=== PATIENT | male | born 1955 | race Caucasian/White ===

== ENCOUNTER 2022-04-22 11:24 | Emergency (ER) | payer MEDICARE, OTHER, SELFPAY ==
[2022-04-22 11:26] VITALS: BP 159/87; PULSE 62; RESP 16; TEMP 36.6; O2SAT 96; BMI 26.3
[2022-04-22 12:02] VITALS: BP 159/87; PULSE 62; RESP 16; TEMP 36.6; O2SAT 96; BMI 26.3
--- NOTE | 2022-04-22 12:16 | EXP.UTC ---
Discharge Plan Disposition Patient Disposition: Home, Self-Care Condition: Good Prescriptions Prescriptions: New doxycycline monohydrate 100 mg tablet 100 mg PO BID 5 Days Qty: 10 0RF No Action allopurinol 100 mg tablet 100 mg PO DAILY fluticasone propionate 50 mcg/actuation spray,suspension 50 mcg NS NEEDED PRN (Reason: Allergy Symptoms) methylprednisolone 4 mg tablets,dose pack See Rx Instructions PO PER PKG DIR Qty: 21 0RF Rx Instructions: PO PER PKG DIR cyclobenzaprine 10 mg tablet 10 mg PO TID PRN (Reason: muscle spasm) Qty: 30 1RF Referrals Follow up/Referrals: Dayanara Calabrese MD [Primary Care Provider] - See instructions Activity Restrictions/Add. Instructions Additional Instructions/Restrictions: Suture instructions: ?You have required stitches today. Please read the following instructions so you know how to care for them: ?1. Keep wound area dry for the first 24 hours. 2?? May clean gently with mild soap and water, after 48 hours to prevent crusting over suture knots. 3. You may shower if your provider gives permission but do not take a bath until the skin is healed.. 4. Never leave a wet dressing or Band-Aid on your stitches as this allows bacteria to reach the area and may cause infection. Band-aids can cause the wound to sweat and not recommended to wear for long periods of time Watch for signs of infection: ? Increasing redness, tenderness or warmth around the suture site ? Unusual swelling around the site ? Appearance of pus around each suture or any red streaks ? Fever If you develop any of the above signs or symptoms of infection, Follow up with Family Physician immediately 5. Suture removal in _12-14___days 6. Return to [facility] [[email or web address]] or follow up with family doctor for removal. This can be done by any medical provider dur?ing regular hours on Friday through Friday, by appointment. Clinical Impressions Clinical Impression: Laceration Instructions Patient Instructions: DI for Laceration Repair, DI for Laceration Repair -- Simple Discharge ED Provider: Katrin Escamilla [facility] [place] General Stated complaint: Cut LT leg w/chainsaw @home 04/22 10:00am Mode of Arrival: Ambulatory Source of Information: Patient Limitations: No Limitations Time Seen by Provider: 04/22/22 12:16 Description of Symptoms (Recalled from Triage Doc. by RN): pt comes in with c/o left knee laceration. pt cut knee with chainsaw earlier this am. HEENT Symptoms (Recalled from RN notes): No Resp Symptoms (Recalled from RN notes): No Skin Symptoms (Recalled from RN notes): Yes MS Symptoms (Recalled from RN notes): No Functional Status (Recalled from RN notes): n/a History of Present Illness Provider Complaint: Patient states that he was using a chainsaw to cut some wood when it kicked back and struck him in the left knee causing laceration to his left knee States that he applied pressure and looked at it States that it didnt look that deep but knew it needed stitches so he came in States that last tetanus was earlier this year Related Data Home Medications Medication Instructions Recorded Confirmed allopurinol 100 mg tablet 100 mg PO DAILY gout 01/21/22 04/22/22 fluticasone propionate 50 50 mcg intranasal NEEDED PRN 01/21/22 04/22/22 mcg/actuation nasal Allergy Symptoms spray,suspension Previous Rx's Medication Instructions Recorded methylprednisolone 4 mg tablets in See Rx Instructions PO PER PKG DIR 01/21/22 a dose pack #21 tabs cyclobenzaprine 10 mg tablet 10 mg PO TID PRN muscle spasm #30 04/15/22 tabs doxycycline monohydrate 100 mg 100 mg PO BID 5 days #10 tabs 04/22/22 tablet Allergies Allergy/AdvReac Type Severity Reaction Status Date / Time cefdinir Allergy Unknown Verified 04/22/22 12:06 Worker's Comp Is this a Worker's Comp case?: No PFSH PFSH Medical History (Updated 04/22/22 @ 12:21 by Katrin Escamilla APRN) Allergic rhinitis Degeneration of intervertebra
[2022-04-22 12:59] VITALS: BP 159/87; PULSE 62; RESP 16; TEMP 36.6
== END 2022-04-22 13:06 | disposition home or self-care (01) ==
PROVIDERS: Emergency Provider Nurse Practitioner; PCP Family Medicine
DX: S81.012A Laceration without foreign body, left knee, initial encounter (principal); M62.838 Other muscle spasm; M51.36 Other intervertebral disc degeneration, lumbar region; M19.90 Unspecified osteoarthritis, unspecified site; J30.9 Allergic rhinitis, unspecified; Z79.51 Long term (current) use of inhaled steroids; Z79.52 Long term (current) use of systemic steroids; Z79.899 Other long term (current) drug therapy; Z88.8 Allergy status to other drugs, medicaments and biological substances; W29.3XXA Contact with powered garden and outdoor hand tools and machinery, initial encounter
CPT/HCPCS: 12001; 99213; G0463

== ENCOUNTER → 2022-04-29 08:50 | Outpatient (CLI) | payer MEDICARE, SELFPAY ==
[2022-04-29 18:37] LABS: Alanine Aminotransferase 14 U/L (12-78); Albumin Level 3.7 g/dl (3.5-5.0); Albumin/Globulin Ratio 1.4 (1.1-1.8); Alkaline Phosphatase 118 U/L (38-126); Anion Gap 11.4 mEq/L (5-15); Aspartate Amino Transferase 27 U/L (17-59); Basophils # 0.1 K/mm3 (0-0.2); Basophils % 1.9 % (0.1-2.0); Bilirubin,Total 0.5 mg/dl (0.2-1.3); Blood Urea Nitrogen 15 mg/dl (9-20); Calcium 8.9 mg/dl (8.4-10.2); Carbon Dioxide 29 mmol/L (22.0-30.0); Chloride 103 mmol/L (98-107); Chol/HDL Ratio 3.1 (1-3.5); Cholesterol 147 mg/dl (140-200); Eosinophils # 0.2 K/mm3 (0.0-0.4); Eosinophils % 4.8 % (0.1-12.0); Estimated Glomerular Filt Rate 84 ml/min (>60); GFR (African American) 101 ML/MIN (>60); Globulin 2.7 g/dL (1.3-3.2); Glucose 88 mg/dl (74-100); HDL Cholesterol 48 mg/dl (40-60); Hematocrit 47.6 % (42.0-52.0); Hemoglobin 15.1 g/dL (14.1-18.0); Lymphocytes # 1.6 K/mm3 (0.7-4.5); Lymphocytes % 35.9 % (10-50); Mean Corpuscular HGB Conc 31.8 g/dL (31.8-35.4); Mean Corpuscular Hemoglobin 29.7 pg (27.0-31.2); Mean Corpuscular Volume 93.6 fl (80-94); Mean Platelet Volume 8.4 fl (7.4-10.4); Monocytes # 0.5 K/mm3 (0.1-1.0); Monocytes % 10.5 % (1.7-9.3); Neutrophils # 2.1 K/mm3 (1.8-7.8); Neutrophils % 46.9 % (37.0-80.0); Platelet Count 343 K/mm3 (142-424); Potassium 4.4 mmoL/L (3.5-5.1); Red Blood Count 5.08 M/mm3 (4.60-6.20); Red Cell Distribution Width 13.6 % (11.5-17.5); Sodium 139 mmol/L (136-145); Total Protein,Serum 6.4 g/dl (6.3-8.2); Triglycerides 57 mg/dl (30-150); Uric Acid 6.1 mg/dl (3.5-8.5); VLDL Cholesterol 11 mg/dL (0-40); White Blood Count 4.4 K/mm3 (4.8-10.8)
[2022-04-29 18:48] LABS: Direct LDL Cholesterol 78.68 mg/dL (100-129)
[2022-04-29 19:08] LABS: Thyroid Stimulating Hormone 3.18 uIU/mL (0.465-4.68)
== END ==
PROVIDERS: PCP Nurse Practitioner; Visit Provider Nurse Practitioner
DX: E79.0 Hyperuricemia without signs of inflammatory arthritis and tophaceous disease (principal); I10 Essential (primary) hypertension
CPT/HCPCS: 80053; 80061; 84443; 84550; 85025

== ENCOUNTER → 2022-06-12 14:02 | Outpatient (CLI) | payer MEDICARE, OTHER, SELFPAY ==
[2022-06-12 18:31] LABS: Adenovirus,PCR Not Detected (NotDetected); Bordetella Pertussis Not Detected (NotDetected); Chlamydophila Pneumoniae, PCR Not Detected (NotDetected); Coronavirus 19, PCR Not Detected (NotDetected); Coronavirus 229E Not Detected (NotDetected); Coronavirus NL63 Not Detected (NotDetected); Coronavirus OC43 Not Detected (NotDetected); Coronovirus HKU1,PCR Not Detected (NotDetected); Human Metapneumovirus Not Detected (NotDetected); Influenza A, PCR Not Detected (NotDetected); Influenza AH1, 2009 Not Detected (NotDetected); Influenza AH1, PCR Not Detected (NotDetected); Influenza AH3,PCR Not Detected (NotDetected); Influenza B, PCR Not Detected (NotDetected); Mycoplasma Pneumoniae, PCR Not Detected (NotDetected); Parainfluenza 1, PCR Not Detected (NotDetected); Parainfluenza 2, PCR Not Detected (NotDetected); Parainfluenza 3, PCR Not Detected (NotDetected); Parainfluenza 4, PCR Not Detected (NotDetected); Respiratory Syncytial Virus Not Detected (NotDetected)
[2022-06-14 08:48] LABS: Rhinovirus/Enterovirus Detected (NotDetected)
== END ==
PROVIDERS: PCP Nurse Practitioner; Visit Provider Nurse Practitioner
DX: J06.9 Acute upper respiratory infection, unspecified (principal); B34.1 Enterovirus infection, unspecified
CPT/HCPCS: 87581; 87632; 87798; C9803; U0003; U0005

== ENCOUNTER 2023-10-14 20:15 | Outpatient (CLI) | payer MEDICARE, OTHER, SELFPAY ==
[2023-10-14 18:18] LABS: Basophils # 0.1 K/mm3 (0-0.2); Basophils % 2.1 % (0.1-2.0); Eosinophils # 0.4 K/mm3 (0.0-0.4); Eosinophils % 5.7 % (0.1-12.0); Hematocrit 45.1 % (42.0-52.0); Hemoglobin 14.4 g/dL (14.1-18.0); Lymphocytes # 2.2 K/mm3 (0.7-4.5); Lymphocytes % 35.4 % (10-50); Mean Corpuscular Volume 96.9 fl (80-94); Mean Platelet Volume 7.8 fl (7.4-10.4); Monocytes # 0.6 K/mm3 (0.1-1.0); Monocytes % 9.6 % (1.7-9.3); Neutrophils # 2.9 K/mm3 (1.8-7.8); Neutrophils % 47.2 % (37.0-80.0); Platelet Count 273 K/mm3 (142-424); Red Blood Count 4.65 M/mm3 (4.60-6.20); Red Cell Distribution Width 13.9 % (11.5-17.5); White Blood Count 6.1 K/mm3 (4.8-10.8)
[2023-10-14 18:50] LABS: Creatinine,Urine Random 62 mg/dL (Not Estab.)
[2023-10-14 18:52] LABS: Microalbumin < 6.000 mg/L (0-16.7)
[2023-10-14 18:58] LABS: Alanine Aminotransferase 17 U/L (12-78); Albumin Level 3.7 g/dl (3.5-5.0); Albumin/Globulin Ratio 1.5 (1.1-1.8); Alkaline Phosphatase 82 U/L (38-126); Anion Gap 8.4 mEq/L (5-15); Aspartate Amino Transferase 26 U/L (17-59); Bilirubin,Total 0.3 mg/dl (0.2-1.3); Blood Urea Nitrogen 15 mg/dl (9-20); Calcium 9.4 mg/dl (8.4-10.2); Carbon Dioxide 30 mmol/L (22.0-30.0); Chloride 110 mmol/L (98-107); Chol/HDL Ratio 3.6 (1-3.5); Cholesterol 162 mg/dl (140-200); Estimated Glomerular Filt Rate 83 ml/min (>60); GFR (African American) 101 ML/MIN (>60); Globulin 2.5 g/dL (1.3-3.2); Glucose 96 mg/dl (74-100); HDL Cholesterol 45 mg/dl (40-60); Potassium 4.4 mmoL/L (3.5-5.1); Sodium 144 mmol/L (136-145); Total Protein,Serum 6.2 g/dl (6.3-8.2); Triglycerides 52 mg/dl (30-150); Uric Acid 5.3 mg/dl (3.5-8.5); VLDL Cholesterol 10 mg/dL (0-40)
[2023-10-14 19:14] LABS: Direct LDL Cholesterol 81.48 mg/dL (100-129)
[2023-10-14 19:32] LABS: Thyroid Stimulating Hormone 3.26 uIU/mL (0.465-4.68)
[2023-10-14 19:37] LABS: Hemoglobin A1C 5.7 % (4.0-6.0)
== END 2023-10-14 23:59 ==
LOC: LAB.DROPOF 20:15
PROVIDERS: PCP Nurse Practitioner; Visit Provider Nurse Practitioner
DX: I10 Essential (primary) hypertension (principal); Z82.49 Family history of ischemic heart disease and other diseases of the circulatory system; Z83.3 Family history of diabetes mellitus; E79.0 Hyperuricemia without signs of inflammatory arthritis and tophaceous disease; J01.00 Acute maxillary sinusitis, unspecified
CPT/HCPCS: 80053; 80061; 82043; 82570; 83036; 84443; 84550; 85025

== ENCOUNTER 2023-10-15 18:29 | Outpatient (CLI) | payer MEDICARE, OTHER, SELFPAY ==
[2023-10-15 18:16] LABS: Chol/HDL Ratio 2.6 (1-3.5); Cholesterol 164 mg/dl (140-200); HDL Cholesterol 64 mg/dl (40-60); Triglycerides 60 mg/dl (30-150); VLDL Cholesterol 12 mg/dL (0-40)
== END 2023-10-15 23:59 ==
PROVIDERS: PCP Nurse Practitioner; Visit Provider Nurse Practitioner
DX: E78.5 Hyperlipidemia, unspecified (principal)
CPT/HCPCS: 80061

== ENCOUNTER 2023-12-15 09:14 | Outpatient (CLI) | payer MEDICARE, OTHER, SELFPAY ==
[2023-12-15 18:08] LABS: Basophils % 0.6 % (0.1-2.0); Eosinophils # 0.1 K/mm3 (0.0-0.4); Eosinophils % 0.9 % (0.1-12.0); Hematocrit 45.7 % (42.0-52.0); Hemoglobin 14.7 g/dL (14.1-18.0); Lymphocytes # 0.8 K/mm3 (0.7-4.5); Lymphocytes % 12.5 % (10-50); Mean Corpuscular HGB Conc 32.1 g/dL (31.8-35.4); Mean Corpuscular Hemoglobin 30.3 pg (27.0-31.2); Mean Corpuscular Volume 94.4 fl (80-94); Mean Platelet Volume 8.6 fl (7.4-10.4); Monocytes # 0.3 K/mm3 (0.1-1.0); Monocytes % 4.6 % (1.7-9.3); Neutrophils # 5.3 K/mm3 (1.8-7.8); Neutrophils % 81.4 % (37.0-80.0); Platelet Count 279 K/mm3 (142-424); Red Blood Count 4.85 M/mm3 (4.60-6.20); White Blood Count 6.5 K/mm3 (4.8-10.8)
[2023-12-15 18:50] LABS: Alanine Aminotransferase 18 U/L (12-78); Albumin Level 3.9 g/dl (3.5-5.0); Albumin/Globulin Ratio 1.5 (1.1-1.8); Alkaline Phosphatase 87 U/L (38-126); Anion Gap 14.1 mEq/L (5-15); Aspartate Amino Transferase 29 U/L (17-59); Bilirubin,Total 0.6 mg/dl (0.2-1.3); Blood Urea Nitrogen 21 mg/dl (9-20); Calcium 9.8 mg/dl (8.4-10.2); Carbon Dioxide 26 mmol/L (22.0-30.0); Chloride 105 mmol/L (98-107); Estimated Glomerular Filt Rate 111 ml/min (>60); GFR (African American) 135 ML/MIN (>60); Globulin 2.6 g/dL (1.3-3.2); Glucose 151 mg/dl (74-100); Potassium 5.1 mmoL/L (3.5-5.1); Sodium 140 mmol/L (136-145); Total Protein,Serum 6.5 g/dl (6.3-8.2)
== END 2023-12-15 23:59 | disposition home or self-care (01) ==
LOC: LAB.DROPOF 12-17 09:37
PROVIDERS: PCP Nurse Practitioner; Visit Provider Nurse Practitioner
DX: R11.2 Nausea with vomiting, unspecified (principal); R42 Dizziness and giddiness
CPT/HCPCS: 80053; 85025

== ENCOUNTER 2024-02-12 18:35 | Outpatient (CLI) | payer MEDICARE, OTHER, SELFPAY ==
[2024-02-12 19:35] LABS: Alanine Aminotransferase 93 U/L (12-78); Albumin Level 3.8 g/dl (3.5-5.0); Albumin/Globulin Ratio 1.4 (1.1-1.8); Alkaline Phosphatase 98 U/L (38-126); Anion Gap 8.6 mEq/L (5-15); Aspartate Amino Transferase 68 U/L (17-59); Bilirubin,Total 0.8 mg/dl (0.2-1.3); Blood Urea Nitrogen 19 mg/dl (9-20); Calcium 9.4 mg/dl (8.4-10.2); Carbon Dioxide 27 mmol/L (22.0-30.0); Chloride 108 mmol/L (98-107); Chol/HDL Ratio 2.3 (1-3.5); Cholesterol 112 mg/dl (140-200); Estimated Glomerular Filt Rate 83 ml/min (>60); GFR (African American) 101 ML/MIN (>60); Globulin 2.7 g/dL (1.3-3.2); Glucose 104 mg/dl (74-100); HDL Cholesterol 49 mg/dl (40-60); Potassium 4.6 mmoL/L (3.5-5.1); Sodium 139 mmol/L (136-145); Total Protein,Serum 6.5 g/dl (6.3-8.2); Triglycerides 49 mg/dl (30-150); Uric Acid 6.6 mg/dl (3.5-8.5); VLDL Cholesterol 10 mg/dL (0-40)
[2024-02-12 19:46] LABS: Direct LDL Cholesterol 46.14 mg/dL (100-129)
[2024-02-12 20:02] LABS: Prostate Specific Ag Screen 1.5 ng/ml (0.0-4.0); Thyroid Stimulating Hormone 3.16 uIU/mL (0.465-4.68)
[2024-02-12 20:21] LABS: Vitamin B12 430 pg/mL (239-931)
[2024-02-12 21:25] LABS: Creatinine,Urine Random 66 mg/dL (Not Estab.); Microalbumin < 6.000 mg/L (0-16.7)
== END 2024-02-12 23:59 | disposition home or self-care (01) ==
PROVIDERS: PCP Nurse Practitioner; Visit Provider Nurse Practitioner
DX: I10 Essential (primary) hypertension (principal); E79.0 Hyperuricemia without signs of inflammatory arthritis and tophaceous disease; I25.10 Atherosclerotic heart disease of native coronary artery without angina pectoris; E78.5 Hyperlipidemia, unspecified; R00.1 Bradycardia, unspecified; Z12.5 Encounter for screening for malignant neoplasm of prostate
CPT/HCPCS: 80053; 80061; 82043; 82570; 82607; 84443; 84550; G0103

== ENCOUNTER 2024-04-01 09:34 | Outpatient (CLI) | payer MEDICARE, OTHER, SELFPAY ==
[2024-04-02 10:06] LABS: Alanine Aminotransferase 20 U/L (12-78); Albumin Level 3.7 g/dl (3.5-5.0); Albumin/Globulin Ratio 1.4 (1.1-1.8); Alkaline Phosphatase 124 U/L (38-126); Aspartate Amino Transferase 36 U/L (17-59); Bilirubin,Total 0.9 mg/dl (0.2-1.3); Blood Urea Nitrogen 15 mg/dl (9-20); Calcium 9.4 mg/dl (8.4-10.2); Carbon Dioxide 27 mmol/L (22.0-30.0); Chloride 106 mmol/L (98-107); Estimated Glomerular Filt Rate 83 ml/min (>60); GFR (African American) 101 ML/MIN (>60); Globulin 2.6 g/dL (1.3-3.2); Glucose 102 mg/dl (74-100); Sodium 137 mmol/L (136-145); Total Protein,Serum 6.3 g/dl (6.3-8.2)
[2024-04-02 10:52] LABS: Anion Gap 8.4 mEq/L (5-15); Potassium 4.4 mmoL/L (3.5-5.1)
== END 2024-04-01 23:59 | disposition home or self-care (01) ==
LOC: LAB.DROPOF 04-02 09:35
PROVIDERS: PCP Nurse Practitioner; Visit Provider Nurse Practitioner
DX: E78.5 Hyperlipidemia, unspecified (principal); R74.8 Abnormal levels of other serum enzymes
CPT/HCPCS: 80053

== ENCOUNTER 2025-04-25 11:11 | Outpatient (CLI) | payer MEDICARE, OTHER, SELFPAY ==
--- OUTSIDE RECORDS SUMMARY | 2025-03-07 06:33 | XMS_ITS | Encounter Summary ---
Author Organization [facility] Address [address], [address] [place] [address] Care Team Providers Care Electromedical Equipment Technician Name Role Phone Unavailable Primary Care Provider Unavailabl e Encounter Details Date Type Department Care Team ([facility] st Contact Info) Description 03/07/2025 6:33 AM EDT - 03/07/2025 6:39 AM EDT Emergency [facility] [id number] [address] David Hill MD [address] [place] [address] Discharge Disposition: Voided Visit Social History Tobacco Use Types Packs/Day Years Used Date Smoking Tobacco: Never Smokeless Tobacco: Never Alcohol Use Standard Drinks/Week Comments Not Currently 0 (1 standard drink = 0.6 oz pur e alcohol) Sex and Gender Information Value Date Recorded Sex Assigned at Not on file Legal Sex Male 2:38 PM EST Gender Identity Not on file Sexual Orientation Not on file documented as of this encounter Medications at Time of Discharge metoprolol succinate (TOPROL XL) 25 MG extended release tablet Take 0.5 tablets by mouth daily lisinopril (PRINIVIL;ZESTRIL) 10 MG tablet Take 1 tablet by mouth daily diclofenac (VOLTAREN) 75 MG EC tablet 04/13/2024 cetirizine (ZYRTEC) 10 MG tablet Take 1 tablet by mouth daily allopurinol (ZYLOPRIM) 100 MG tablet TAKE 1 TABLET BY MOUTH EVERY DAY FOR GOUT amLODIPine (NORVASC) 5 MG tablet Take 1 tablet by mouth daily isosorbide mononitrate (IMDUR) 30 MG extended release tablet Take 1 tablet by mouth every morning aspirin 81 MG chewable tablet Take 1 tablet by mouth daily 11/14/2023 atorvastatin (LIPITOR) 40 MG tablet Take 1 tablet by mouth nightly 01/19/2024 colchicine (COLCRYS) 0.6 MG tablet Take 0.6 mg by mouth daily documented as of this encounter Plan of Treatment Not on file documented as of this encounter Visit Diagnoses Not on filedocumented in this encounter Additional Health Concerns Assessment Noted Time A Body Mass Index follow-up plan has been documented for the patient 01/14/2020 4:12 PM EDT documented as of this encounter
--- OUTSIDE RECORDS SUMMARY | 2025-04-20 10:30 | XMS_ITS | Encounter Summary ---
Author Organization [facility] Address [address] [place] [address] Care Team Providers Care Fire Watchman Name Role Phone Ronda Mendez APRN Primary Care Provider [phone] Reason for Visit * Reason Comments Pain Encounter Details Date Type Department Care Team (Late st Contact Info) Description 04/20/2025 10:30 AM EDT Office Visit [facility] [address] [place] [id number] Mariia Gaitan PA-C [address] [place] [address] Osteoarthritis of left knee, unspecified osteoarthritis type (Primary Dx); Left knee pain, unspecified chronicity Social History Tobacco Use Types Packs/Day Years Used Date Smoking Tobacco: Never Passive Smoke Exposure: Past Smokeless Tobacco: Never Alcohol Use Standard Drinks/Week Comments Never 0 (1 standard drink = 0.6 oz pur e alcohol) AUDIT-C Answer Date Recorded Frequency of Alcohol Consumption Never 07/30/2019 Average Number of Drinks Not on file 020 Frequency of Binge Drinking Not on file 07/14 Sex and Gender Information Value Date Recorded Sex Assigned at Not on file Legal Sex Male 2:42 AM EDT Gender Identity Not on file Sexual Orientation Not on file documented as of this encounter Last Filed Vital Signs Vital Sign Reading Time Taken Comments Blood Pressure - - Pulse - - Temperature - - Respiratory Rate - - Oxygen Saturation - - Inhaled Oxygen Concentration - - Weight 97.8 kg (215 lb 9.6 oz) 04/20/2025 11:14 AM EDT Height - - Body Mass Index 27.68 01/18/2025 7:25 AM EDT documented in this encounter Progress Notes * Mariia Gaitan PA-C - 04/20/2025 10:30 AM EDT Images from the original note were not included. DATE OF VISIT: 04/20/2025 PATIENT NAME: Phani Harris AGE: 70 y.o. SEX: male CHIEF COMPLAINT Chief Complaint Patient presents with ??? Left Knee - Pain HPI Phani Harris is a 70 y.o. male who presents to orthopedic urgent care for evaluation of left knee pain. Patient states that his left knee has been stiff/sore intermittently for the past 10 years. His knee has started to bother him a little bit more over the past 1 year. Reports occasional catching in the knee. Denies locking, popping, or feeling of instability. He is able to ambulate. Has had no new or previous injury to the knee. He is a maldonado and is very active. States that he did get a cortisone injection a couple of years ago, which was helpful. He takes Aleve twice daily for his knee and shoulder, which helps somewhat. SOCIAL HISTORY Social History Occupational History ??? Not on file Tobacco Use ??? Smoking status: Never Passive exposure: Past ??? Smokeless tobacco: Never Vaping Use ??? Vaping status: Never Used Substance and Sexual Activity ??? Alcohol use: Never ??? Drug use: Never ??? Sexual activity: Not on file PAST MEDICAL HISTORY Past Medical History[1] CURRENT MEDICATIONS Current Medications[1] PHYSICAL EXAM General: Well appearing with appropriate affect. No acute distress. Head/Neck: Normocephalic. Range of motion of the neck easy without discomfort. Skin: Skin warm and dry. Color natural. Neuro: Alert and oriented to person, place, and time. Normal neurosensory response to touch. Pulmonary: Chest expansion appears symmetric and unlabored. Cardiovascular: No signs of peripheral edema. Lymphatic: No signs of lymphangitis. Gait: Walks with a non-antalgic gait. Musculoskeletal: LEFT KNEE: No swelling, effusion, ecchymosis, masses, or deformities. Tender alongthe medial joint line and medial tibial plateau. No lateral joint line tenderness. No medial or lateral femoral condyle or lateral tibial plateau tenderness. No patella bony tenderness. No pain with palpation of the quadriceps or patella tendons. Full range of motion with flexion and extension. Palpable crepitus with range of motion. Strength is 5/5 with intact extensor mechanism. Patella tracks well without instability. No varus or valgus instability with stressing. Negative Kp. Negative Agueda. No hip or pelvic pain with flexion, internal or external range of motion. Sensation intact. Right knee is nontender with palpation. Full motion and full strength. No instabilities. IMAGING X-rays 3 Views Left Knee: Mild to moderate degenerative changes patellofemoreal and medial compartment. No obvious acute osseous abnormality is identified. ASSESSMENT Left Knee Pain Left Knee Osteoarthritis PLAN I discussed the case with the patient and reviewed treatment options. Patient is interested in a cortisone injection in his left knee. We will have him see one of our knee specialists to discuss this. Handout provided for home exercise program. Tylenol over the counter, as needed, as directed on the bottle, not to exceed 3000 mg per day. Ice 20 minutes on, 60 minutes off. Avoid aggravating activities. Patient will follow up with one of our knee specialists at their next available appointment for reevaluation and further management or sooner if symptoms worsen. The patient was in agreement with thetreatment plan. DME Summary No orders found for display PROCEDURES Haley Gaitan PA-C [phone] [1] Past Medical History: Diagnosis Date ??? Arthritis shoulders ??? Clavicle fracture [1] Current Outpatient Medications: ??? allopurinoL (ZYLOPRIM) 100 mg Oral Tablet, Take 100 mg by mouth daily. for gout, Disp: , Rfl: ??? amLODIPine (NORVASC) 5 mg Oral Tablet, Take 1 Tablet by mouth daily., Disp: 90 Tablet, Rfl: 3 ??? aspirin 81 mg Oral Tablet, Chewable, Take 1 Tablet by mouth daily., Disp: , Rfl: ??? atorvastatin (LIPITOR) 40 mg Oral Tablet, TAKE 1 TABLET BY MOUTH EVERY DAY AT NIGHT, Disp: 90 Tablet, Rfl: 3 ??? atorvastatin (LIPITOR) 40 mg Oral Tablet, Take 1 Tablet by mouth nightly., Disp: 90 Tablet, Rfl: 3 ??? cetirizine (ZYRTEC) 10 mg Oral Tablet, Take 10 mg by mouth daily., Disp: , Rfl: ??? colchicine 0.6 mg Oral Tablet, Take 0.6 mg by mouth 2 times daily., Disp: , Rfl: ??? isosorbide mononitrate (IMDUR) 30 mg Oral Tablet Sustained Release 24 hr, Take 1 Tablet by mouth every morning., Disp: 90 Tablet, Rfl: 3 ??? lisinopriL (PRINIVIL;ZESTRIL) 10 mg Oral Tablet, Take 1 Tablet by mouth daily., Disp: 90 Tablet, Rfl: 3 ??? metoprolol succinate (TOPROL-XL) 25 mg Oral Tablet Sustained Release 24 hr, Take 0.5 Tablets bymouth daily., Disp: 45 Tablet, Rfl: 3 documented in this encounter Plan of Treatment Upcoming Encounters Date Type Department Care Team (Late st Contact Info) Description 04/27/2025 9:00 AM EDT Office Visit [facility] [address] [address] Jalen Perales MD [address] [address] documented as of this encounter Results * XR KNEE LEFT AP LATERAL AND SUNRISE STANDING (04/20/2025 11:11 AM EDT) Luciano Reynolds - 04/20/2025 11:11 AM EDT Please see physician's note from office encounter for x-ray imaging result Mariia Gaitan PA-C [facility] Final Result documented in this encounter Visit Diagnoses Diagnosis Osteoarthritis of left knee, unspecified osteoarthritis type- Primary Left knee pain, unspecified chronicity Left knee pain, unspecified chronicity documented in this encounter Care Teams Fire Watchman Relationship Specialty Start Date End Date Ronda Mendez APRN [address] [facility] [address] [place] [address] PCP - General Nurse Practitioner 07/16/19 documented as of this encounter
--- OUTSIDE RECORDS SUMMARY | 2025-04-20 10:45 | XMS_ITS | Encounter Summary ---
Author Organization [facility] Address [address] [place] [address] Care Team Providers Care Market Researcher Name Role Phone Ronda Mendez APRN Primary Care Provider [phone] Encounter Details Date Type Department Care Team (Late Contact Info) Description 04/20/2025 10:45 AM EDT Ancillary Procedure [facility] [address] [address] Mariia Giatan PA-C [address] [place] [address] Left knee pain, unspecified chronicity Social History [...] on file documented as of this encounter Plan of Treatment Upcoming Encounters Date Type Department Care Team (Late st Contact Info) Description 04/27/2025 9:00 AM EDT Office Visit [facility] [address] [id number] Jalen Perales MD [address] [place] [address] documented as of this encounter Procedures Procedure Name Priority Date/Time Associated Diagnosis Comments XR KNEE LEFT AP LATERAL AND SUNRISE STANDING Routine 04/20/2025 11:11 AM EDT Left knee pain, unspecified chronicity documented in this encounter Results * XR KNEE LEFT AP LATERAL AND SUNRISE STANDING (04/20/2025 11:11 AM EDT) Narrative Genericuser, Audit - 04/20/2025 11:11 AM EDT Please see physician's note from office encounter for x-ray imaging result us Mariia Gaitna PA-C [facility] Final Result documented in this encounter Visit Diagnoses Diagnosis Left knee pain, unspecified chronicity documented in this encounter Care Teams Market Researcher Relationship Specialty Start Date End Date Ronda Mendez APRN [facility] [address] [place] [address] PCP - General Nurse Practitioner 07/16/19 documented as of this encounter
[2025-04-25 17:09] LABS: Hematocrit 44.4 % (42.0-52.0); Hemoglobin 14.6 g/dL (14.1-18.0); Immature Granulocytes % 0.2 %; Mean Corpuscular HGB Conc 32.9 g/dL (31.8-35.4); Mean Corpuscular Hemoglobin 30.1 pg (27.0-31.2); Mean Corpuscular Volume 91.5 fl (80-94); Nucleated Red Blood Cells % 0 %; Platelet Count 263 K/mm3 (142-424); Red Blood Count 4.85 M/mm3 (4.60-6.20); Red Cell Distribution Width-SD 46.7 fL; White Blood Count 8.8 K/mm3 (4.8-10.8)
[2025-04-25 17:19] LABS: Alanine Aminotransferase 24 U/L (12-78); Albumin Level 3.8 g/dl (3.5-5.0); Albumin/Globulin Ratio 1.4 (1.1-1.8); Alkaline Phosphatase 139 U/L (38-126); Amylase 82 U/L (30-110); Anion Gap 12.0 mEq/L (5-15); Aspartate Amino Transferase 30 U/L (17-59); Bilirubin,Total 0.8 mg/dl (0.2-1.3); Blood Urea Nitrogen 21 mg/dl (9-20); Calcium 9.2 mg/dl (8.4-10.2); Carbon Dioxide 29 mmol/L (22.0-30.0); Chloride 104 mmol/L (98-107); Cholesterol 113 mg/dl (140-200); Creatinine,Serum 1.00 mg/dl (0.66-1.25); Estimated Glomerular Filt Rate 73 ml/min (>60); GFR (African American) 89 ML/MIN (>60); Globulin 2.7 g/dL (1.3-3.2); Glucose 141 mg/dl (74-100); HDL Cholesterol 46 mg/dl (40-60); Lipase 36 U/L (23-300); Potassium 5.0 mmoL/L (3.5-5.1); Sodium 140 mmol/L (136-145); Total Protein,Serum 6.5 g/dl (6.3-8.2); Triglycerides 50 mg/dl (30-150); Uric Acid 5.0 mg/dl (3.5-8.5)
[2025-04-25 17:48] LABS: Thyroid Stimulating Hormone 2.57 uIU/mL (0.465-4.68)
--- OUTSIDE RECORDS SUMMARY | 2025-04-26 11:14 | XMS_ITS | Clinical Summary ---
Author Organization [facility] Address [address], [address] [place] [address] Care Team Providers Care Plant Protection Guard Name Role Phone Unavailable Primary Care Provider Unavailabl e Allergies Active Allergy Reactions Criticality Noted Date Comments Cefdinir Rash Low 08/10/2019 Rash on face Penicillins Rash Low 08/10/2019 Rash on face Medications colchicine (COLCRYS) 0.6 MG tablet Take 0.6 mg by mouth daily Active metoprolol succinate (TOPROL XL) 25 MG extended release tablet Take 0.5 tablets by mouth daily Active lisinopril (PRINIVIL;ZESTRI L) 10 MG tablet Take 1 tablet by mouth daily Active diclofenac (VOLTAREN) 75 MG EC tablet 04/13/2024 Active cetirizine (ZYRTEC) 10 MG tablet Take 1 tablet by mouth daily Active allopurinol (ZYLOPRIM) 100 MG tablet TAKE 1 TABLET BY MOUTH EVERY DAY FOR GOUT Active amLODIPine (NORVASC) 5 MG tablet Take 1 tablet by mouth daily Active isosorbide mononitrate (IMDUR) 30 MG extended release tablet Take 1 tablet by mouth every morning Active aspirin 81 MG chewable tablet Take 1 tablet by mouth daily 11/14/2023 Active atorvastatin (LIPITOR) 40 MG tablet Take 1 tablet by mouth nightly 01/19/2024 Active Active Problems No known active problems Encounters Date Type Department Care Team Description 03/07/2025 6:33 AM EDT - 03/07/2025 6:39 AM EDT Emergency [facility] [address] [place] [phone] Sergio, David, MD Discharge Disposition: Voided Visit from Last 3 Months Social History Tobacco Use Types Packs/Day Years Used Date Smoking Tobacco: Never Smokeless Tobacco: Never Alcohol Use Standard Drinks/Week Comments Not Currently 0 (1 standard drink = 0.6 oz pur e alcohol) Sex and Gender Information Value Date Recorded Sex Assigned at Not on file Legal Sex Male 2:38 PM EST Gender Identity Not on file Sexual Orientation Not on file Last Filed Vital Signs Vital Sign Reading Time Taken Comments Blood Pressure 135/79 09/07/2019 1:00 PM EST Pulse 58 09/07/2019 1:00 PM EST Temperature 36.6 C (97.9 F) 09/30/2019 1:33 PM EDT Respiratory Rate - - Oxygen Saturation - - Inhaled Oxygen Concentration - - Weight 95.3 kg (210 lb) 06/24/2024 9:41 AM EST Height 188 cm (6' 2 ) 06/24/2024 9:41 AM EST Body Mass Index 26.96 06/24/2024 9:41 AM EST Plan of Treatment Health Maintenance Due Date Last Done Comments Lipids 1963 Depression Screen 1965 Hepatitis C screen 1971 Colonoscopy 1998 Colorectal Cancer Screen 1998 FIT/FOBT: Average risk 1998 Fecal-DNA (Cologuard): [place] ge risk 1998 Sigmoidoscopy/CT colonography 1998 Pneumococcal 50+ years Vacci ne (1 of 1 - PCV) 2003 Shingles vaccine (1 of 2) 2003 Annual Wellness Visit (Medicare) 04/14/2024 Flu vaccine (#1) 02/11/2025 COVID-19 Vaccine (3 - 2024-2 6 season) 2025 11/09/2020, 10/19/2020 Respiratory Syncytial Virus (RSV) or age 60 yrs+ (1 - 1-dose 75+ series) 02/04/2028 DTaP/Tdap/Td vaccine (2 - Td or Tdap) 09/18/2031 09/17/2021, 09/22/1996 Hepatitis A vaccine Aged Out No longe r eligible based on patient's age to complete this topic Hepatitis B vaccine Aged Out No longe r eligible based on patient's age to complete this topic Hib vaccine Aged Out No longer eligi ble based on patient's age to complete this topic Meningococcal (ACWY) vaccine Aged Out No longer eligible based on patient's age to complete this topic Meningococcal B vaccine Aged Out No l onger eligible based on patient's age to complete this topic Polio vaccine Aged Out No longer elig ible based on patient's age to complete this topic Insurance MEDICARE Member Subscriber Plan / Payer (Ef fective 2018-Present) Name:Phani Hutchison Relation to Subscriber:Self Name:Phani Hutchison Payer ID:Not on file Group ID:Not on file Type:Not on file Address: [address]
--- OUTSIDE RECORDS SUMMARY | 2025-04-26 11:14 | XMS_ITS ---
Author Organization Unknown TREATMENT PLAN [facility] Start Date Provider Encounter for Check-up [id number] [facility]
--- OUTSIDE RECORDS SUMMARY | 2025-04-26 11:14 | XMS_ITS | Clinical Summary ---
Author Organization [facility] Address [address] [facility] [place] [address] Phone Care Team Providers Care Calibration Technician Name Role Phone Ronda Mendez APRN Primary Care Provider Allergies Active Allergy Reactions Criticality Noted Date Comments Cefdinir Rash 08/10/2019 Rash on face Penicillins Rash 08/10/2019 Rash on face Medications allopurinoL (ZYLOPRIM) 100 mg Oral Tablet Take 100 mg by mouth daily. for gout Active cetirizine (ZYRTEC) 10 mg Oral Tablet Take 10 mg by mouth daily. Active aspirin 81 mg Oral Tablet, Chewable Take 1 Tablet by mouth daily. 11/14/2023 Active colchicine 0.6 mg Oral Tablet Take 0.6 mg by mouth 2 times daily. Active atorvastatin (LIPITOR) 40 mg Oral Tablet TAKE 1 TABLET BY MOUTH EVERY DAY AT NIGHT 90 Tablet 3 01/18/2025 Active atorvastatin (LIPITOR) 40 mg Oral Tablet Take 1 Tablet by mouth nightly. 90 Tablet 3 01/18/2025 Active isosorbide mononitrate (IMDUR) 30 mg Oral Tablet Sustained Release 24 hr Take 1 Tablet by mouth every morning. 90 Tablet 3 01/18/2025 Active lisinopriL (PRINIVIL;ZESTRI L) 10 mg Oral Tablet Take 1 Tablet by mouth daily. 90 Tablet 3 01/18/2025 Active metoprolol succinate (TOPROL-XL) 25 mg Oral Tablet Sustained Release 24 hr Take 0.5 Tablets by mouth daily. 45 Tablet 3 01/18/2025 Active amLODIPine (NORVASC) 5 mg Oral Tablet Take 1 Tablet by mouth daily. 90 Tablet 3 01/18/2025 Active Active Problems Problem Noted Date Diagnosed Date Coronary artery disease invo lving [place] coronary artery of [place] heart without angina pectoris 01/21/2024 Hyperlipidemia LDL goal <70 01/21/2024 Hypertension 01/21/2024 Encounters Date Type Department Care Team Description 04/20/2025 10:45 AM EDT Ancillary Procedure [facility] [address] [place] [id number] Mariia Gaitan PA-C Left knee pain, unspecified chronicity 04/20/2025 10:30 AM EDT Office Visit [facility] [address] [address] Mariia Gaitan PA-C Osteoarthritis of left knee, unspecified osteoarthritis type (Primary Dx); Left knee pain, unspecified chronicity from Last 3 Months Surgical History Surgery Date Site/Laterality Comments ANKLE SURGERY SHOULDER ARTHROSCOPY 08/16/2019 Left LEFT SHOULDER ARTHROSCOPY ROTATOR CUFF REPAIR, DEBRIDEMENT DECOMPRESSION, BICEPS TENODESIS, with collagen patch augmentation; Surgeon: Matthew Murrieta MD; Location: [facility]; Service: Orthopedics Medical devices from this surgery are in the Medical Devices section. CATARACT EXTRACTION EXTRACAPSULAR W/ INTRAOCULAR LENS IMPLANTATION 06/08/[address] Michelle Emanuel CATARACT EXTRACTION EXTRACAPSULAR W/ INTRAOCULAR LENS IMPLANTATION 06/22/[address] Michelle Emanuel Medical History Medical History Date Comments Arthritis shoulders Clavicle fracture Family History Medical History Relation Name Comments Diabetes Brother 1 Heart Disease Brother 2 Diabetes Father Anesth Problems Neg Hx Relation Name Status Comments Brother 1 Brother 2 Father Mother Social History Tobacco Use Types Packs/Day Years [...] Sign Reading Time Taken Comments Blood Pressure 120/80 01/18/2025 7:25 AM EDT Pulse 50 01/18/2025 7:25 AM EDT Temperature 36.6 C (97.9 F) 11/17/2023 11:50 AM EDT Respiratory Rate 17 11/17/2023 5:00 PM EDT Oxygen Saturation 98% 01/18/2025 7:25 AM EDT Inhaled Oxygen Concentration - - Weight 97.8 kg (215 lb 9.6 oz) 04/20/2025 11:14 AM EDT Height 188 cm (6' 2 ) 01/18/2025 7:25 AM EDT Body Mass Index 27.68 01/18/2025 7:25 AM EDT Plan of Treatment Upcoming Encounters Date Type Department Care Team (Late st Contact Info) Description 04/27/2025 9:00 AM EDT Office Visit [facility] [address] [address] Jalen Perales MD [address] [address] Health Maintenance Due Date Last Done Comments Wellness Exam Medicare 02/04/1958 Hepatitis C Screening 1971 Cologuard 1998 Colon Cancer Screening 1998 Colonoscopy 1998 FIT 1998 Sigmoidoscopy 1998 Virtual Colonography 1998 Pneumococcal Vaccine 50+ (1 of 1 - PCV) 2003 Zoster (1 of 2) 2003 COVID-19 Vaccine (3 - 2024-2 6 season) 2025 11/09/2020, 10/19/2020 Influenza Vaccine (#1) 2025 DTaP/TDaP/Td (2 - Td or Tdap) 09/18/2031, 09/22/1996 Hepatitis B Vaccine Aged Out No longe r eligible based on patient's age to complete this topic Meningococcal B Vaccine Aged Out No l onger eligible based on patient's age to complete this topic Medical Devices Implanted Type Area Supervisor Properties Device Identifier Shelf Expiration Date Model / Serial / Lot Metal Plate And Screws Ankle [place] Corkscrew Biocomposite Ite 5.5 X 14.7mm - [id number] Implanted:Qty: 1 on 08/16/2019 by Matthew Murrieta MD at [facility] Left: Shoulder ARTH[employer] [id number] 05/13/2023 AR-1927BC F-3 / / [id number] [place] Corkscrew Biocomposite Ite 5.5 X 14.7mm - [id number] Implanted:Qty: 1 on 08/16/2019 by Matthew Murrieta MD at [facility] Left: Shoulder [employer]X [id number] 05/13/2023 AR-1927BC F-3 / / [id number] [place] Lock Swivel Biocomposite With Out Tape 4.75 X 19.1 - [id number] Implanted:Qty: 1 on 08/16/2019 by Matthew Murrieta MD at [facility] Left: Shoulder [employer] [id number] 05/13/2021 AR-2324BC C / / [id number] [place] Lock Swivel Biocomposite With Out Tape 4.75 X 19.1 - [id number] Implanted:Qty: 1 on 08/16/2019 by Matthew Murrieta MD at [facility] Left: Shoulder ARTHREX [id number] 05/13/2021 AR-2324BC C / / [id number] Implant Bioinductive With Arthro Del Large - [id number] Implanted:Qty: 1 on 08/16/2019 by Matthew Murrieta MD at [facility] Left: Shoulder RIVERA & NEPHEW:ORTHO 02/25/2022 [id number] / / [id number] Staple Tendon - [id number] Implanted:Qty: 1 on 08/16/2019 by Matthew Murrieta MD at [facility] Left: Shoulder RIVERA & NEPHEW:ENDO 05/18/2022 2504-1 / / [id number] [place] Bone 3 W/Arthro Del Sys Adv - [id number] Implanted:Qty: 1 on 08/16/2019 by Matthew Murrieta MD at [facility] Left: Shoulder RIVERA & NEPHEW:ORTHO [id number] 11/21/2021 [id number] / / [id number] Procedures Procedure Name Priority Date/Time Associated Diagnosis Comments XR KNEE LEFT AP LATERAL AND SUNRISE STANDING Routine 04/20/2025 11:11 AM EDT Left knee pain, unspecified chronicity from Last 3 Months Results * XR KNEE LEFT AP LATERAL AND SUNRISE STANDING (04/20/2025 11:11 AM EDT) Narrative GenericuserLuciano - 04/20/2025 11:11 AM EDT Please see physician's note from office encounter for x-ray imaging result Mariia Gaitan PA-C [facility] Final Result from Last 3 Months Insurance [employer] [place]ICARE [place] PART [place] B [place] B [facility] [place]IC[place] B [facility] MEDICARE [place] PART A AND B Advance Directives For more information, please contact: [phone] Documents on File Type Date Recorded 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
== END 2025-04-25 23:59 ==
LOC: LAB.DROPOF 04-26 11:12
PROVIDERS: PCP Nurse Practitioner; Visit Provider Nurse Practitioner
DX: E79.0 Hyperuricemia without signs of inflammatory arthritis and tophaceous disease (principal); I10 Essential (primary) hypertension; Z12.5 Encounter for screening for malignant neoplasm of prostate; R10.9 Unspecified abdominal pain; E78.5 Hyperlipidemia, unspecified
CPT/HCPCS: 80053; 80061; 82150; 83690; 84443; 84550; 85025; G0103